=== PATIENT | male | born 1990 | race Caucasian/White ===

== ENCOUNTER 2022-12-17 13:19 | Emergency (ER) | payer OTHER ==
[~2022-12-17] VITALS: Ht 177.8 cm; Wt 117.9 kg
--- NOTE | 2022-12-17 13:21 | NUR ---
Dr. Silva evaluating pt on [facility]issa
[2022-12-17 13:24] VITALS: BP 118/74
--- NOTE | 2022-12-17 13:26 | NUR ---
JACKELYN ALS TO ER BED 10
[2022-12-17] MEDS ORDERED: MORPHINE SULFATE 4 MG/ML SYR IM ONE (13:30)
[2022-12-17] MEDS ORDERED: CYCL-711 PO (15:08)
[2022-12-17] MEDS ORDERED: ACET-10509 PO (15:08)
[2022-12-17] MEDS ORDERED: IBUP-2213 PO (15:08)
--- NOTE | 2022-12-17 15:23 | NUR ---
Patient discharged with v/s stable. Written and verbal after care instructions given. Patient alert, oriented and verbalized understanding of instructions. Ambulatory with steady gait. All questions addressed prior to discharge. ID band removed. Patient advised to follow up with PMD. Rx of Tylenol, Flexeril and Ibuprofen given. Opportunity to ask questions provided and answered. WORK NOTE HANDED.
== END 2022-12-17 15:23 | disposition home or self-care (01) ==
LOC: MED 13:19
DX: M54.2 Cervicalgia (principal); M54.50 Low back pain, unspecified; M54.6 Pain in thoracic spine; Z79.899 Other long term (current) drug therapy; V49.88XA Car occupant (driver) (passenger) injured in other specified transport accidents, initial encounter; Y93.89 Activity, other specified; Y92.89 Other specified places as the place of occurrence of the external cause; Y99.8 Other external cause status
CPT/HCPCS: 70450; 71250; 72125; 72128; 72131; 74176; 96372; 99285; J2270